=== PATIENT | male | born 1980 | race Caucasian/White ===

== ENCOUNTER → 2017-10-12 12:22 | Outpatient (CLI) | payer OTHER, SELFPAY ==
--- NOTE | 2017-10-12 | DI.CT.S_ITS ---
PROCEDURE: CT CHEST ABDOMEN WO CON INDICATIONS: FATIGUE MEDIASTINAL DISEASE TECHNIQUE: After the administration of oral contrast, 5 mm thick sections acquired from the pulmonary apices to the iliac crests. 5 mm thick coronal and sagittal reformats acquired, with additional 7 mm coronal MIP reformats through the lungs. For radiation dose reduction, the following was used: automated exposure control, adjustment of mA and/or kV according to patient size. COMPARISON: None. FINDINGS: Image quality: Excellent. CHEST: Lungs and pleura: No acute pulmonary opacities. No pleural effusions or pneumothorax. Central and peripheral airways are patent and normal in caliber. Mediastinum: Heart size is normal. No pericardial effusion. No mediastinal adenopathy by size criteria. Thoracic aorta and central pulmonary arteries are normal in size. Esophagus is normal in caliber. No hiatal hernia. Chest wall: No axillary or supraclavicular adenopathy by size criteria. Thyroid gland is not well-seen by this noncontrast study.. ABDOMEN: Solid organs: Liver is normal in size. Gallbladder appears normal. Pancreas is normal in contours. Spleen is normal in size. No adrenal nodules. Both kidneys are normal in size, without hydronephrosis or nephrolithiasis. Peritoneum and bowel: Small and large bowel loops are normal in caliber and wall thickness. No free fluid or air. Nodes and vessels: No retroperitoneal or mesenteric adenopathy by size criteria. Aorta and inferior vena cava are normal in caliber. Miscellaneous: No ventral hernias. IMPRESSION: No lesion found, source of current symptoms is not identified. Quality of visualization is somewhat limited by absence of intravenous contrast. Dictated by: Obed Finch M.D. on 10/12/2017 at 13:51 Approved by: Obed Finch M.D. on 10/12/2017 at 13:52
== END ==
PROVIDERS: Visit Provider Family Medicine
DX: J98.59 Other diseases of mediastinum, not elsewhere classified (principal); R53.83 Other fatigue
CPT/HCPCS: 71250; 74150

== ENCOUNTER → 2020-11-12 09:42 | Outpatient (CLI) | payer OTHER, SELFPAY ==
[2020-11-12 19:42] LABS: TSH w/ Reflex to FT4 2.68 uIU/mL (0.47-4.68)
== END ==
PROVIDERS: PCP Family Medicine; Visit Provider Family Medicine
DX: E03.8 Other specified hypothyroidism (principal); E06.3 Autoimmune thyroiditis
CPT/HCPCS: 84443

== ENCOUNTER → 2021-01-27 12:43 | Outpatient (CLI) | payer OTHER, SELFPAY ==
[2021-01-28 14:21] LABS: Appearance Urine UA CLEAR; Bilirubin Urine UA NEGATIVE (NEGATIVE); Color Urine UA YELLOW; Glucose Urine UA NEGATIVE (Negative); Ketones Urine UA NEGATIVE (NEGATIVE); Leukocyte Esterase Urine UA 1+ (NEGATIVE); Nitrite Urine UA NEGATIVE (Negative); Occult Blood Urine UA NEGATIVE (Negative); Protein Urine UA NEGATIVE (Negative); Urobilinogen Urine UA 0.2 E.U./dL (0.2); pH Urine UA 5.5 (4.5-8.0)
[2021-01-28 14:27] LABS: Bacteria Urine None Seen; Culture Indicated Urine Specimen Cultured; RBC Urine None Seen (0-5/HPF); WBC Urine 1-5/HPF (0-5/HPF)
[2021-01-28 15:49] LABS: Urine N gonorrhoeae NOT DETECTED
[2021-01-28 16:15] LABS: Urine Chlamydia DETECTED
[2021-01-29 08:30] LABS: RPR Screen Non Reactive (Non Reactive)
[2021-01-29 17:39] LABS: HIV 1 & 2 Ab/Ag 4th Gen Combo NEGATIVE (NEGATIVE)
== END ==
PROVIDERS: PCP Family Medicine; Referring Provider Physician Assistant; Visit Provider Physician Assistant
DX: R30.0 Dysuria (principal); Z20.2 Contact with and (suspected) exposure to infections with a predominantly sexual mode of transmission
CPT/HCPCS: 81001; 86592; 87086; 87389; 87491; 87591

== ENCOUNTER → 2021-02-10 09:05 | Outpatient (CLI) | payer OTHER, SELFPAY ==
[2021-02-10 20:04] LABS: Urine N gonorrhoeae NOT DETECTED
[2021-02-10 20:13] LABS: Urine Chlamydia NOT DETECTED
== END ==
PROVIDERS: PCP Physician Assistant; Visit Provider Physician Assistant
DX: A74.9 Chlamydial infection, unspecified (principal)
CPT/HCPCS: 87491; 87591

== ENCOUNTER → 2021-06-16 09:37 | Outpatient (CLI) | payer OTHER, SELFPAY ==
[2021-06-16 19:45] LABS: Thyroid Stimulating Hormone 2.48 uIU/mL (0.47-4.68)
== END ==
PROVIDERS: PCP Physician Assistant; Visit Provider Family Medicine
DX: E03.8 Other specified hypothyroidism (principal); E06.3 Autoimmune thyroiditis
CPT/HCPCS: 84443

== ENCOUNTER → 2021-08-06 15:18 | Outpatient (CLI) | payer OTHER, SELFPAY ==
[2021-08-07 19:52] LABS: Urine N gonorrhoeae NOT DETECTED
[2021-08-07 19:53] LABS: Urine Chlamydia NOT DETECTED
== END ==
PROVIDERS: PCP Physician Assistant; Visit Provider Family Medicine
DX: M54.9 Dorsalgia, unspecified (principal); R10.9 Unspecified abdominal pain; Z87.440 Personal history of urinary (tract) infections
CPT/HCPCS: 87086; 87491; 87591

== ENCOUNTER → 2021-08-07 09:06 | Outpatient (CLI) | payer OTHER, SELFPAY ==
[2021-08-07 18:30] LABS: Add Manual Diff / Slide Review NO; Basophils Absolute Auto 0 /uL (0-100); Basophils Percent Auto 0.7 % (0-2); Eosinophils Absolute Auto 100 /uL (0-450); Eosinophils Percent Auto 2.5 % (2-4); Hematocrit 43.7 % (41-53); Hemoglobin 15.6 g/dL (13.5-17.5); Lymphocytes Absolute Auto 1300 /uL (1100-4500); Mean Corpuscular HGB Conc 35.6 % (30-36); Mean Corpuscular Hemoglobin 34.7 PG (26-34); Mean Corpuscular Volume 97.4 fL (80-100); Monocytes Absolute Auto 600 /uL (0-900); Neutrophils Absolute Auto 2500 /uL (1500-7000); Neutrophils Percent Auto 55.8 % (50-75); Platelet Count 173 X10^3/uL (150-400); Red Blood Cell Count 4.48 X10^6/uL (4.5-5.9); Red Cell Distribution Width 12.5 % (11.6-14.8); White Blood Cell Count 4.5 X10^3/uL (4.5-11.0)
[2021-08-07 18:38] LABS: Alanine Aminotransferase 19 IU/L (<50); Albumin 3.8 g/dL (3.5-5.0); Albumin Globulin Ratio 1.6 (1.0-2.8); Alkaline Phosphatase 43 U/L (38-126); Aspartate Aminotransferase 24 IU/L (17-59); BUN Creatinine Ratio 21.6 (6-22); Bilirubin Total 0.8 mg/dL (0.2-1.3); Blood Urea Nitrogen 21 mg/dL (9-20); Calcium 8.6 mg/dL (8.4-10.2); Carbon Dioxide 30 mmol/L (22-32); Chloride 102 mmol/L (98-107); Estimated Glomerular Filt Rate > 60 mL/min (>60); Globulin 2.4 g/dL (1.7-4.1); Glucose 98 mg/dL (70-100); HEMOLYSIS < 15 (0-50); Potassium 4.1 mmol/L (3.4-5.1); Sodium 139 mmol/L (137-145); Total Protein 6.2 g/dL (6.3-8.2)
== END ==
PROVIDERS: PCP Physician Assistant; Visit Provider Family Medicine
DX: M54.9 Dorsalgia, unspecified (principal); R10.9 Unspecified abdominal pain; R50.9 Fever, unspecified; R61 Generalized hyperhidrosis; R63.0 Anorexia; Z87.440 Personal history of urinary (tract) infections
CPT/HCPCS: 80053; 85025

== ENCOUNTER → 2022-06-24 13:13 | Outpatient (CLI) | payer OTHER, SELFPAY ==
[2022-06-24 21:25] LABS: TSH w/ Reflex to FT4 2.15 uIU/mL (0.47-4.68)
[2022-06-24 21:38] LABS: HIV 1 & 2 Ab/Ag 4th Gen Combo NEGATIVE (NEGATIVE)
[2022-06-24 21:48] LABS: Urine N gonorrhoeae NOT DETECTED
[2022-06-24 22:30] LABS: Urine Chlamydia NOT DETECTED
[2022-06-26 04:13] LABS: RPR Screen Non Reactive (Non Reactive)
== END ==
PROVIDERS: PCP Family Medicine; Visit Provider Family Medicine
DX: E03.8 Other specified hypothyroidism (principal); E06.3 Autoimmune thyroiditis; K62.5 Hemorrhage of anus and rectum; R00.0 Tachycardia, unspecified; R30.0 Dysuria
CPT/HCPCS: 84443; 86592; 87389; 87491; 87591

== ENCOUNTER → 2022-07-15 10:32 | Outpatient (CLI) | payer OTHER, SELFPAY ==
[2022-07-15 20:04] LABS: BUN Creatinine Ratio 16.4 (6-22); Blood Urea Nitrogen 19 mg/dL (9-20); Calcium 9.2 mg/dL (8.4-10.2); Carbon Dioxide 31 mmol/L (22-32); Chloride 99 mmol/L (98-107); Cholesterol 207 mg/dL (140-199); Estimated Glomerular Filt Rate > 60 mL/min (>60); Glucose 81 mg/dL (70-100); HDL Cholesterol 49 mg/dL (40-60); HEMOLYSIS < 15 (0-50); LDL Cholesterol Calculated 141 mg/dL (<100); Potassium 4.2 mmol/L (3.4-5.1); Sodium 137 mmol/L (137-145); Triglycerides 87 mg/dL (35-150)
[2022-07-15 20:11] LABS: Add Manual Diff / Slide Review NO; Basophils Absolute Auto 0 /uL (0-100); Basophils Percent Auto 0.8 % (0-2); Eosinophils Absolute Auto 0 /uL (0-450); Hematocrit 43.1 % (41-53); Hemoglobin 15.4 g/dL (13.5-17.5); Lymphocytes Absolute Auto 1200 /uL (1100-4500); Lymphocytes Percent Auto 24.7 % (25-40); Mean Corpuscular HGB Conc 35.7 % (30-36); Mean Corpuscular Hemoglobin 35.1 PG (26-34); Mean Corpuscular Volume 98.4 fL (80-100); Monocytes Absolute Auto 400 /uL (0-900); Monocytes Percent Auto 7.6 % (3-14); Neutrophils Absolute Auto 3200 /uL (1500-7000); Neutrophils Percent Auto 65.9 % (50-75); Platelet Count 216 X10^3/uL (150-400); Red Blood Cell Count 4.38 X10^6/uL (4.5-5.9); Red Cell Distribution Width 12.8 % (11.6-14.8); White Blood Cell Count 4.8 X10^3/uL (4.5-11.0)
[2022-07-15 20:44] LABS: Vitamin D 25 Hydroxy (D3) 31.2 ng/mL (30.0-100.0)
[2022-07-15 20:52] LABS: Vitamin B12 349 pg/mL (239-931)
== END ==
PROVIDERS: PCP Family Medicine; Visit Provider Family Medicine
DX: D72.819 Decreased white blood cell count, unspecified (principal); E03.8 Other specified hypothyroidism; E06.3 Autoimmune thyroiditis; F32.4 Major depressive disorder, single episode, in partial remission; R00.0 Tachycardia, unspecified; R53.83 Other fatigue; Z13.1 Encounter for screening for diabetes mellitus; Z13.220 Encounter for screening for lipoid disorders; Z13.6 Encounter for screening for cardiovascular disorders; Z87.440 Personal history of urinary (tract) infections
CPT/HCPCS: 80048; 80061; 82306; 82607; 85025

== ENCOUNTER → 2023-06-09 09:32 | Outpatient (CLI) | payer OTHER, SELFPAY ==
[2023-06-09 20:42] LABS: Cholesterol 232 mg/dL (140-199); HDL Cholesterol 56 mg/dL (40-60); LDL Cholesterol Calculated 154 mg/dL (<100); Triglycerides 112 mg/dL (35-150)
[2023-06-09 21:33] LABS: Vitamin B12 485 pg/mL (239-931)
[2023-06-09 22:30] LABS: Vitamin D 25 Hydroxy (D3) 40.8 ng/mL (30.0-100.0)
== END ==
PROVIDERS: PCP Family Medicine; Visit Provider Family Medicine
DX: E53.8 Deficiency of other specified B group vitamins (principal); E55.9 Vitamin D deficiency, unspecified; E78.2 Mixed hyperlipidemia
CPT/HCPCS: 80061; 82306; 82607

== ENCOUNTER → 2023-06-20 09:05 | Outpatient (CLI) | payer OTHER, SELFPAY ==
[2023-06-20 20:19] LABS: TSH w/ Reflex to FT4 3.12 uIU/mL (0.47-4.68)
[2023-06-20 20:37] LABS: HIV 1 & 2 Ab/Ag 4th Gen Combo NEGATIVE (NEGATIVE)
[2023-06-20 20:45] LABS: Urine N gonorrhoeae NOT DETECTED
[2023-06-20 20:57] LABS: Urine Chlamydia NOT DETECTED
[2023-06-22 03:10] LABS: HSV 2 IGG AB < 0.91 index (0.00-0.90); HSV1IGG < 0.91 index (0.00-0.90)
[2023-06-22 09:21] LABS: RPR Screen Non Reactive (Non Reactive)
== END ==
PROVIDERS: PCP Family Medicine; Visit Provider Family Medicine
DX: E03.8 Other specified hypothyroidism (principal); E06.3 Autoimmune thyroiditis; Z11.3 Encounter for screening for infections with a predominantly sexual mode of transmission
CPT/HCPCS: 84443; 86592; 86695; 86696; 87389; 87491; 87591

== ENCOUNTER → 2024-09-26 11:09 | Outpatient (CLI) | payer BC, SELFPAY ==
[2024-09-26 20:50] LABS: Add Manual Diff / Slide Review NO; Hematocrit 46.3 % (41-53); Hemoglobin 16.4 g/dL (13.5-17.5); Lymphocytes Absolute Auto 1400 /uL (1100-4500); Mean Corpuscular HGB Conc 35.5 % (30-36); Mean Corpuscular Hemoglobin 35.7 PG (26-34); Mean Corpuscular Volume 100.5 fL (80-100); Platelet Count 228 X10^3/uL (150-400)
[2024-09-26 20:54] LABS: Blood Urea Nitrogen 14 mg/dL (9-20); Calcium 9.4 mg/dL (8.4-10.2); Carbon Dioxide 28 mmol/L (22-32); Chloride 101 mmol/L (98-107); Cholesterol 224 mg/dL (140-199); Estimated Glomerular Filt Rate > 60 mL/min (>60); Glucose 84 mg/dL (70-99); HDL Cholesterol 48 mg/dL (40-60); HEMOLYSIS < 15 (0-50); Potassium 4.2 mmol/L (3.4-5.1); Sodium 138 mmol/L (137-145); Triglycerides 131 mg/dL (35-150)
[2024-09-26 21:26] LABS: TSH w/ Reflex to FT4 3.57 uIU/mL (0.47-4.68)
== END ==
PROVIDERS: PCP Family Medicine; Visit Provider Family Medicine
DX: E78.2 Mixed hyperlipidemia (principal); E03.8 Other specified hypothyroidism; E06.3 Autoimmune thyroiditis; F32.4 Major depressive disorder, single episode, in partial remission; R00.0 Tachycardia, unspecified
CPT/HCPCS: 80048; 80061; 84443; 85025